=== PATIENT | male | born 1980 | race Caucasian/White ===

== ENCOUNTER 2023-05-21 15:05 | Emergency (ER) | payer OTHER, SELFPAY ==
[2023-05-21] VITALS (28 sets, daily range): BP systolic 101–134; BP diastolic 61–95; PULSE 73–104; RESP 12–25; TEMP 36.6; O2SAT 94–99; BMI 26.5
--- NOTE | 2023-05-21 15:18 | ED_ITS ---
HPI - General Adult General Chief complaint: Chest Pain Time Seen by Provider: 05/21/23 15:18 Source: patient Mode of arrival: ambulance Limitations: no limitations History of Present Illness HPI narrative: She presents emergency department complaining of chest pain. Patient states he is having right and left-sided chest pain intermittently for the last month. He was sent here because today his blood pressure was also elevated. 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 He denies any drug abuse in the last 6 weeks. He was taking clonidine and recently had amlodipine and losartan added to his medication list. States he has some anxiety. He denies any shortness of breath. He states the pain comes and goes not related to exertion and while he is in the emergency department the pain has resolved. Denies any previous history of heart disease. He denies any recent fever, chills, or cough. Denies any nausea, vomiting, diarrhea, constipation, or abdominal pain. He denies any paresthesias, weakness. Denies any flank pain, hematuria, dysuria. Denies any lower extremity edema, or cramping. Related Data Home Medications Medication Instructions Recorded Confirmed amlodipine 5 mg tablet 5 mg PO DAILY 05/21/23 05/21/23 clonidine HCl 0.1 mg tablet 0.1 mg PO Q8H PRN htn 05/21/23 05/21/23 folic acid 1 mg tablet 1 mg PO DAILY 05/21/23 05/21/23 gabapentin 300 mg capsule 300 mg PO DAILY 05/21/23 05/21/23 hydroxyzine pamoate 25 mg capsule 25 mg PO Q8H PRN htn 05/21/23 05/21/23 losartan 100 mg tablet 100 mg PO DAILY 05/21/23 05/21/23 omeprazole 20 mg capsule,delayed 20 mg PO DAILY 05/21/23 05/21/23 release Allergies Allergy/AdvReac Type Severity Reaction Status Date / Time No Known Drug Allergies Allergy Verified 05/21/23 15:10 Review of Systems ROS Status of ROS 10 or more systems reviewed and unremarkable except as noted in history and below Exam Narrative Exam Narrative: Nurses notes and vital signs reviewed and patient is not hypoxic. General: Nontoxic, Well-appearing and in no apparent distress. Skin: Warm, dry, no pallor noted. No Rash Head: Normocephalic, atraumatic. Neck: Supple, non-tender. Eye: Pupils are equal, round and EOMI. No scleral icterus. Ears, Nose, Mouth, and Throat: TM clear, no posterior oropharynx erythema or nasal mucosal hypertrophy, uvula is mid-line Oral mucosa is moist Cardiovascular: Regular Rate and Rhythm without murmur, gallop or rub. Respiratory: No accessory muscle use or respiratory distress. Lungs are clear to auscultation, no wheezing, rales or rhonchi Chest Wall: no tenderness Back: No midline thoracic or lumbar vertebral tenderness. No CVA tenderness Musculoskeletal: normal ROM, no calf or popliteal tenderness, no lower extremity edema/swelling GI: Abdomen is soft, non-distended. Normal bowel sounds. No masses appreciated. No tenderness to palpation. No rebound, guarding, or rigidity noted. Neurological: A&O x4. No cranial nerve dysfunction observed. No truncal ataxia. Moves all extremities. Sensation intact. Psychiatric: Cooperative and interactive. Normal mood and affect. Constitutional Vital Signs, click to edit/add: Last Vital Signs Temp 97.8 F 05/21/23 15:07 Pulse 90 05/21/23 18:45 Resp 18 05/21/23 18:45 BP 134/95 H 05/21/23 18:45 Pulse Ox 96 05/21/23 18:40 O2 Del Method Room Air 05/21/23 16:01 Course Vital Signs Vital signs: Vital Signs Temperature 97.8 F 05/21/23 15:07 Pulse Rate 93 H 05/21/23 15:07 Respiratory Rate 13 05/21/23 15:07 Blood Pressure 120/76 05/21/23 15:07 Pulse Oximetry 95 05/21/23 15:07 Oxygen Delivery Method Room Air 05/21/23 15:07 Temperature 97.8 F 05/21/23 15:07 Pulse Rate 90 05/21/23 18:45 Respiratory Rate 18 05/21/23 18:45 Blood Pressure 134/95 H 05/21/23 18:45 Pulse Oximetry 96 05/21/23 18:40 Oxygen Delivery Method Room Air 05/21/23 16:01 Medical Decision Making MDM Narrative Medical decision making narrative: Patient's had an EKG, blood work done. His blood pressure improved in the emergency department was 134/95. pt is chest pain-free.Patient was discussed with Dr. Elliott who advised he was concerned about the patient's pressure not responding to regular treatment. Patient's heart score is less than 3. He will continue to follow the patient. At this time the patient is without objective evidence of an acute process requiring hospitalization or inpatient management. The patient has remained hemodynamically stable. No additional indication for emergent studies at this time. I answered all questions. Discussed discharge instructions including standard anticipatory guidance and what should prompt a return to the emergency department, including if they get worse are not getting better or develops any new or concerning symptoms. I've given them specific time frame in which to follow-up, and who to follow-up with. The patient demonstrates understanding. Patient is nontoxic and stable for discharge with outpatient follow-up. This note was created with the assistance of a speech recognition program. Although the intention is to generate documents that actually reflects the content of the visit, no guarantees can be provided that every mistake has been identified and corrected by editing. Lab Data Lab results reviewed: Yes I reviewed the patient's lab results Labs: Lab Results 05/21/23 05/21/23 Range/Units 15:58 17:37 WBC 7.3 (4.0-11.0) 10^3/uL RBC 4.47 L (4.70-6.10) 10^6/uL Hgb 13.9 L (14.0-18.0) g/dL Hct 39.3 L (42.0-54.0) % MCV 87.9 (80.0-94.0) fL MCH 31.1 (25.9-34.0) pg MCHC 35.4 H (29.9-35.2) g/dL RDW 12.5 (11.0-15.0) % Plt Count 310 (150-450) 10^3/uL MPV 9.3 L (9.5-13.5) fL Neut % (Auto) 65.4 (43.0-75.0) % Lymph % (Auto) 24.1 (20.5-60.0) % Brewster % (Auto) 8.0 (1.7-12.0) % Eos % (Auto) 1.5 (0.9-7.0) % Baso % (Auto) 0.4 (0.2-2.0) % Neut # (Auto) 4.7 (1.4-6.5) 10^3/uL Lymph # (Auto) 1.8 (1.2-3.8) 10^3/uL Brewster # (Auto) 0.6 (0.3-0.8) 10^3/uL Eos # (Auto) 0.1 (0.0-0.7) 10^3/uL Baso # (Auto) 0.0 (0.0-0.1) 10^3/uL Abs Immat Gran (auto) 0.04 H (0.00-0.03) 10^3/uL Imm/Tot Granulo (auto) 0.6 H (0.0-0.5) % PT 10.3 (9.0-11.6) sec INR 0.97 APTT 29.6 (22.3-36.2) sec Sodium 139 (136-145) mmol/L Potassium 4.1 (3.5-5.1) mmol/L Chloride 102 (98-107) mmol/L Carbon Dioxide 31.5 (21.0-32.0) mmol/L Anion Gap 9.6 BUN 11.0 (7.0-18.0) mg/dL Creatinine 1.19 (0.70-1.30) mg/dL Est GFR ( Amer) >60 (>=60) Est GFR (Non-Af Amer) >60 (>=60) BUN/Creatinine Ratio 9.2 Glucose 108 H (74-106) mg/dL Calcium 9.0 (8.5-10.1) mg/dL Total Bilirubin 0.5 (0.2-1.0) mg/dL AST 20 (15-37) U/L ALT 36 (16-63) U/L Alkaline Phosphatase 78 (46-116) U/L Troponin I High Sens 7.7 6.2 (4.0-76.1) pg/mL NT-Pro-B Natriuret Pep 55.0 (<=450.0) pg/mL Total Protein 7.6 (6.4-8.2) g/dL Albumin 4.3 (3.4-5.0) g/dL Globulin 3.3 g/dL Albumin/Globulin Ratio 1.3 ECG Data Attestation: I personally reviewed and interpreted this ECG as follows: Discharge Plan Discharge Chief Complaint: Chest Pain Clinical Impression: Chest pain, Hypertension Patient Disposition: Home, Self-Care Time of Disposition Decision: 18:07 Condition: Good Mode of Transportation: Private Vehicle Prescriptions / Home Meds: No Action amlodipine 5 mg tablet 5 mg PO DAILY clonidine HCl 0.1 mg tablet 0.1 mg PO Q8H PRN (Reason: htn) folic acid 1 mg tablet 1 mg PO DAILY gabapentin 300 mg capsule 300 mg PO DAILY hydroxyzine pamoate 25 mg capsule 25 mg PO Q8H PRN (Reason: htn) losartan 100 mg tablet 100 mg PO DAILY omeprazole 20 mg capsule,delayed release(DR/EC) 20 mg PO DAILY Instructions: Chest Pain (ED), Hypertension (ED) Stand Alone Forms: Portal Instructions Referrals: SANJAY ELLIOTT APRN [Physician] - 1 week Physician,Non-Staff, [Primary Care Provider] - 1 week Discharge Date/Time: 05/21/23 18:50
--- NOTE | 2023-05-21 15:21 | ECG_ITS ---
[facility] Test Date: 2023-05-21 Pat Name: danny antonio Department: Room: - Gender: Male Ginner: : 1980 Requested By: [id number] Order Number: [id number] Reading MD: DAVID KAUFMAN Measurements Intervals Jerome Rate: 93 P: 35 PA: 148 QRS: -7 QRSD: 90 T: 62 QT: 352 QTc: 403 Interpretive Statements 1100 Sinus rhythm 4068 Nonspecific Twave abnormality 9130 borderline ECG No previous ECG available for comparison Electronically Signed On 05-24-2023 7:12:50 EDT by DAVID KAUFMAN
--- NOTE | 2023-05-21 15:21 | XR_ITS ---
The [address] [address] Patient Name: LEENA BUSCH MRN: [id number] date: 1980 Sex: M Assigned Patient Location: ER Current Patient Location: ER Accession/Order Number: [id number] Exam Date: 05/21/2023 15:40 Report Date: 05/21/2023 15:48 At the request of: FOREST PAPPAS Procedure: XR chest 1V EXAMINATION: XR chest 1V 05/21/2023 12:48 PM PDT HISTORY: cp TECHNIQUE: Single frontal view of the chest acquired. COMPARISONS: None. FINDINGS: Lines/tubes/other: None. Heart and mediastinum: The heart and the mediastinum are within normal limits for technique. Bones: No acute osseous abnormality. Lungs: The lungs are clear. There is no evidence of pneumonia or pulmonary edema. Pleura: There is no significant pleural effusion or pneumothorax. Other: None. XR/XR chest 1V IMPRESSION: No acute cardiopulmonary abnormality. Electronically authenticated by: KEENA VEGA Date: 05/21/2023 15:48
[2023-05-21 16:09] LABS: Basophils Percent Auto 0.4 % (0.2-2.0); Eosinophils Absolute Auto 0.1 10^3/uL (0.0-0.7); Eosinophils Percent Auto 1.5 % (0.9-7.0); Hematocrit 39.3 % (42.0-54.0); Hemoglobin 13.9 g/dL (14.0-18.0); Immature Granulocytes Abs Auto 0.04 10^3/uL (0.00-0.03); Immature Granulocytes Pct Auto 0.6 % (0.0-0.5); Lymphocytes Absolute Auto 1.8 10^3/uL (1.2-3.8); Lymphocytes Percent Auto 24.1 % (20.5-60.0); Mean Corpuscular HGB Conc 35.4 g/dL (29.9-35.2); Mean Corpuscular Hemoglobin 31.1 pg (25.9-34.0); Mean Corpuscular Volume 87.9 fL (80.0-94.0); Mean Platelet Volume 9.3 fL (9.5-13.5); Monocytes Absolute Auto 0.6 10^3/uL (0.3-0.8); Neutrophils Absolute Auto 4.7 10^3/uL (1.4-6.5); Neutrophils Percent Auto 65.4 % (43.0-75.0); Platelet Count 310 10^3/uL (150-450); Red Blood Count 4.47 10^6/uL (4.70-6.10); Red Cell Distribution Width 12.5 % (11.0-15.0); White Blood Count 7.3 10^3/uL (4.0-11.0)
[2023-05-21 16:23] LABS: INR 0.97; Partial Thromboplastin Time 29.6 sec (22.3-36.2); Prothrombin Time 10.3 sec (9.0-11.6)
[2023-05-21 16:28] LABS: Alanine Aminotransferase 36 U/L (16-63); Albumin Globulin Ratio 1.3; Albumin Level 4.3 g/dL (3.4-5.0); Alkaline Phosphatase 78 U/L (46-116); Anion Gap 9.6; Aspartate Amino Transferase 20 U/L (15-37); BUN Creatinine Ratio 9.2; Bilirubin Total 0.5 mg/dL (0.2-1.0); Carbon Dioxide 31.5 mmol/L (21.0-32.0); Chloride 102 mmol/L (98-107); Estimated GFR (African America >60 (>=60); Estimated GFR (Non-African Ame >60 (>=60); Globulin 3.3 g/dL; Glucose 108 mg/dL (74-106); Potassium 4.1 mmol/L (3.5-5.1); Sodium 139 mmol/L (136-145); Total Protein 7.6 g/dL (6.4-8.2); Troponin I High Sensitivity 7.7 pg/mL (4.0-76.1)
[2023-05-21 18:04] LABS: Troponin I High Sensitivity 6.2 pg/mL (4.0-76.1)
== END 2023-05-21 18:50 | disposition home or self-care (01) ==
PROVIDERS: Emergency Provider Emergency Medicine
DX: R07.9 Chest pain, unspecified (principal); I10 Essential (primary) hypertension; F15.11 Other stimulant abuse, in remission; Z79.899 Other long term (current) drug therapy
CPT/HCPCS: 36415; 71045; 80053; 83880; 84484; 85025; 85610; 85730; 93005; 99285